=== PATIENT | female | born 1945 | race Caucasian/White ===

== ENCOUNTER 2020-11-22 23:27 | Emergency (ER) | payer MEDICARE ==
[~2020-11-22 23:27] MED LIST: DULCOLAX5 MG PO; KEFLEX CAP 500500 MG PO
[2020-11-22 23:51] LABS: HEMOGLOBIN 13.7 gm/dl (12.3-15.3); RED BLOOD COUNT 4.27 M/UL (4.00-5.10); WHITE BLOOD COUNT 12.1 K/UL (4.5-11.0)
[2020-11-23] MEDS ORDERED: K-DUR TAB 20 M20 MEQ PO (03:33)
[2020-11-23] MEDS ORDERED: MAGNESIUM400 M2 PO (03:33)
== END 2020-11-23 08:20 | disposition home or self-care (01) ==
LOC: ER1 23:27
PROVIDERS: Family Medicine
DX: M51.36 Other intervertebral disc degeneration, lumbar region (principal); E87.6 Hypokalemia; E83.42 Hypomagnesemia; K21.9 Gastro-esophageal reflux disease without esophagitis; I12.9 Hypertensive chronic kidney disease with stage 1 through stage 4 chronic kidney disease, or unspecified chronic kidney disease; N18.9 Chronic kidney disease, unspecified; E78.5 Hyperlipidemia, unspecified; Z86.73 Personal history of transient ischemic attack (TIA), and cerebral infarction without residual deficits; Z88.2 Allergy status to sulfonamides; Z79.899 Other long term (current) drug therapy
CPT/HCPCS: 36415; 70450; 71045; 72131; 80053; 81001; 82550; 82553; 83605; 83690; 83735; 83874; 84484; 85025; 93005; 99284

== ENCOUNTER → 2021-07-03 | Outpatient (CLI) | payer MEDICARE ==
[~2021-07-03] MED LIST changes: +K-DUR TAB 20 M20 MEQ PO; +MAGNESIUM400 M2 PO
== END ==
LOC: KOH-I 14:14
DX: M79.604 Pain in right leg (principal); R93.6 Abnormal findings on diagnostic imaging of limbs
CPT/HCPCS: 93926